=== PATIENT | female | born 1955 | race Caucasian/White ===

== ENCOUNTER → 2016-12-02 | Outpatient (CLI) | payer OTHER ==
[~2016-12-02] MED LIST: CYMBALTA30 MG PO; CYMBALTA60 MG PO; HYDROCHLOROTHIA25 MG PO; LEVOTHROID,S0.125 MG PO; LYRICA225 MG PO; LYRICA75 MG PO; NUVIGIL250 MG PO; REQUIP1 MG PO; REQUIP3 MG PO; TOPAMAX100 MG PO; TOPAMAX200 MG PO; ULTRAM50 MG PO; ZOFRAN4 MG PO
== END | disposition home or self-care (01) ==
LOC: AMB 09:21
DX: L98.9 Disorder of the skin and subcutaneous tissue, unspecified (principal)
CPT/HCPCS: 88305